=== PATIENT | female | born 1990 | race Caucasian/White ===

== ENCOUNTER 2021-11-03 08:34 | Emergency (ER) | payer SELFPAY ==
[~2021-11-03] VITALS: Ht 162.6 cm; Wt 125.0 kg
[2021-11-03] MEDS ORDERED: PRED50TA PO (08:55)
[2021-11-03] MEDS ORDERED: CYCL5TAB PO (08:55)
--- NOTE | 2021-11-03 08:55 | PHYS DOC ---
General Adult EDM: Chief Complaint: Right lower extremity pain, knee pain HPI: HPI: Patient is a 31-year-old female who arrives via EMS complaining of low back, right lower extremity and right knee pain. Patient reports has been ongoing for quite some time. Patient describes pain whenever she walks and/or sits. Patient states in addition to her pain she has pain of her right knee. She relates a history of a torn meniscus and states she has pain from her kneecap which shoots downward. Patient also reports a bulging disc in her back and believes her right lower extremity pain may be related to this. When asked how long this has been ongoing, the patient states has been ongoing for quite some time. She does not provide a definitive timetable. She denies any saddle anesthesia. She further denies any lower extremity weakness. Additionally she denies any bowel/bladder incontinence. She is awake, alert and nontoxic- appearing. Review of Systems: Review of Systems: Constitutional: Denies fever or chills Eyes: Denies change in visual acuity HENT: Denies nasal congestion or sore throat Respiratory: Denies cough or shortness of breath Cardiovascular: Denies chest pain or edema GI: Denies abdominal pain, nausea, vomiting, bloody stools or diarrhea : Denies dysuria Musculoskeletal: Denies back pain or joint pain Integument: Denies rash Neurologic: Denies headache, focal weakness or sensory changes Endocrine: Denies polyuria or polydipsia Lymphatic: Denies swollen glands Psychiatric: Denies depression or anxiety Physical Exam: PE: Constitutional: Morbidly obese. No acute distress, non-toxic appearance. [] HENT: Normocephalic, atraumatic, bilateral external ears normal, oropharynx moist, no oral exudates, nose normal. [] Eyes: PERRLA, EOMI, conjunctiva normal, no discharge. [] Neck: Normal range of motion, no tenderness, supple, no stridor. [] Cardiovascular:Heart rate regular rhythm, no murmur [] Lungs & Thorax: Bilateral breath sounds clear to auscultation [] Abdomen: Bowel sounds normal, soft, no tenderness, no masses, no pulsatile masses. [] Skin: Warm, dry, no erythema, no rash. [] Back: No tenderness, no CVA tenderness. [] Extremities: Minimal tenderness to palpation of the right knee. No cyanosis, no clubbing, ROM intact, no edema. [] Neurologic: Alert and oriented X 3, normal motor function, normal sensory function, no focal deficits noted. [] Psychologic: Affect normal, judgement normal, mood normal. [] Current Patient Data: Vital Signs: Vital Signs Date Time Temp Pulse Resp B/P (MAP) Pulse Ox O2 Delivery O2 Flow Rate FiO2 11/03/21 08:57 98.4 92 16 124/83 (97) 97 Room Air Vital Signs Date Time Temp Pulse Resp B/P (MAP) Pulse Ox O2 Delivery O2 Flow Rate FiO2 11/03/21 08:57 98.4 92 16 124/83 (97) 97 Room Air EKG: EKG: [] Radiology/Procedures: Radiology/Procedures: [] Heart Score: C/O Chest Pain: N/A Risk Factors: Risk Factors: DM, Current or recent (<one month) smoker, HTN, HLP, family history of CAD, obesity. Risk Scores: Score 0 - 3: 2.5% MACE over next 6 weeks - Discharge Home Score 4 - 6: 20.3% MACE over next 6 weeks - Admit for Clinical Observation Score 7 - 10: 72.7% MACE over next 6 weeks - Early Invasive Strategies Course & Med Decision Making: Course & Med Decision Making Pertinent Labs and Imaging studies reviewed. (See chart for details) [] Osvaldo Disclaimer: Osvaldo Disclaimer: This electronic medical record was generated, in whole or in part, using a voice recognition dictation system. Departure Departure: Impression: Primary Impression: Lumbosacral radiculopathy Additional Impression: Right knee pain Disposition: HOME / SELF CARE / HOMELESS Condition: STABLE Patient Instructions: Knee - Cartilage (Meniscus) Injury, Lumbosacral Radiculopathy Scripts Cyclobenzaprine Hcl (CYCLOBENZAPRINE HCL) 5 Mg Tablet 1 TAB PO TID for pain for 5 Days, #15 TAB Prov: MARGARETTE REIS DO 11/03/21 Prednisone (PREDNISONE) 50 Mg Tablet 1 TAB PO DAILY for inflammation for 5 Days, #5 TAB You received this medication in the emergency room today. You will starting your next dose tomorrow. Prov: MARGARETTE REIS DO 11/03/21 MARGARETTE REIS DO Nov 03, 2021 08:55
[2021-11-03 08:57] VITALS: BP 124/83
== END 2021-11-03 09:38 | disposition home or self-care (01) ==
LOC: ER 08:34
DX: M54.17 Radiculopathy, lumbosacral region (principal); M25.561 Pain in right knee; E66.01 Morbid (severe) obesity due to excess calories; Z68.41 Body mass index [BMI] 40.0-44.9, adult
CPT/HCPCS: 99283